=== PATIENT | male | born 1970 | race African-American/Black ===

== ENCOUNTER 2017-06-14 15:15 | Emergency (ER) | payer OTHER ==
[~2017-06-14] VITALS: Ht 172.7 cm; Wt 66.2 kg
[2017-06-14 16:10] VITALS: BP_SYST 153
--- NOTE | 2017-06-14 17:05 | NUR ---
Pt brought by self ,accompanied by children, A&Ox4, pt present to ER requesting refills for Hyzaar 25/100 mg and Amlodipine 10 mg,pt states he has not been able to follow up with his doctor.pt denies pain, VSS
--- NOTE | 2017-06-14 17:05 | NUR ---
Patient to ER bed H1 to gown for evaluation. Side rails up.
--- NOTE | 2017-06-14 17:10 | NUR ---
Elda Moralez [employer]CE WORKER at bedside examining patient
[2017-06-14 17:55] VITALS: BP_SYST 160
--- NOTE | 2017-06-14 17:56 | NUR ---
Patient given written and verbal discharge instructions and verbalizes understanding. ER MD discussed with patient the results and treatment provided. Patient in stable condition. ID arm band removed. Rx of Hyzaar and Amlodipine given. Patient educated on pain management and to follow up with PMD. Pain Scale 0/10 . Opportunity for questions provided and answered.
== END 2017-06-14 17:55 | disposition home or self-care (01) ==
LOC: SED 15:15
DX: Z76.0 Encounter for issue of repeat prescription (principal); I10 Essential (primary) hypertension; F17.210 Nicotine dependence, cigarettes, uncomplicated; Z71.6 Tobacco abuse counseling
CPT/HCPCS: 99283